=== PATIENT | female | born 1950 | race Caucasian/White ===

== ENCOUNTER → 2017-07-14 | Outpatient (CLI) | payer OTHER | END | disposition home or self-care (01) | LOC: RAD 15:26 | DX: M19.011 Primary osteoarthritis, right shoulder (principal); G89.29 Other chronic pain | CPT/HCPCS: 73030 ==

== ENCOUNTER → 2017-09-08 | Outpatient (CLI) | payer OTHER, MEDICARE | END | disposition home or self-care (01) | LOC: MRI 15:31 | DX: M25.711 Osteophyte, right shoulder (principal); M75.101 Unspecified rotator cuff tear or rupture of right shoulder, not specified as traumatic; G89.29 Other chronic pain; I10 Essential (primary) hypertension; E03.9 Hypothyroidism, unspecified | CPT/HCPCS: 73221 ==

== ENCOUNTER → 2018-04-27 | Outpatient (CLI) | payer OTHER ==
[2014-12-18 19:32] VITALS: BP 165/78
[~2018-04-27] MED LIST: REGADENOSON 0.4 MG/5 ML DISP.SYRIN. IV ONE
--- NOTE | 2018-04-27 12:01 | CARD ---
MR#: [id number] Date of Study: 04/27/2018 Ordering Physician: SYMONE DICKSON, Referring Physician: SYMONE DICKSON, Tech: Zuleyka Alfredo APPROVED REPORT EXAM: Two-dimensional and M-mode echocardiogram with Doppler and color Doppler. Other Information Quality : AverageHR: 62bpm INDICATION Dyspnea RISK FACTORS Hypertension 2D DIMENSIONS RVDd2.9 (2.9-3.5cm)Left Atrium(2D)3.4 (1.6-4.0cm) IVSd1.1 (0.7-1.1cm)Aortic Root(2D)2.7 (2.0-3.7cm) LVDd4.4 (3.9-5.9cm)LVOT Diameter2.1 (1.8-2.4cm) PWd0.8 (0.7-1.1cm)LVDs2.5 (2.5-4.0cm) FS (%) 43.1 %SV64.9 ml LVEF(%)74.5 (>50%) Aortic Valve AoV Peak Spenser.195.6cm/sAoV VTI47.5cm AO Peak GR.15.3mmHgLVOT Peak Spenser.125.5cm/s AO Mean GR.8mmHgAVA (VMAX)2.17cm2 Mitral Valve MV E Tefownvg54.0cm/sMV DECEL SLQE911sk MV A Jyqlsbpd370.6cm/sE/A Ratio0.8 Pulmonary Valve PV Peak Wbpxnlld367.9cm/s Tricuspid Valve TR P. Lnadqsug272jr/sRAP RBQAVATE7ifVq TR Peak Gr.68laGqKOBF68uhVs Pulmonary Vein S1 Kosjfyqp82.9cm/sD2 Xrvtxoug82.2cm/s PVa krjjaxbw88odcx LEFT VENTRICLE The left ventricle is normal size. There is borderline concentric left ventricular hypertrophy. The l eft ventricular systolic function is normal. The Ejection Fraction is 55-60%. There is normal LV segm ental wall motion. Transmitral Doppler flow pattern is Grade I-abnormal relaxation pattern. RIGHT VENTRICLE The right ventricle is normal size. There is normal right ventricular wall thickness. The right ventr icular systolic function is normal. ATRIA The left atrium size is normal. The right atrium size is normal. The interatrial septum is intact wit h no evidence for an atrial septal defect or patent foramen ovale as noted on 2-D or Doppler imaging. AORTIC VALVE The aortic valve is normal in structure and function. Doppler and Color Flow revealed no significant aortic regurgitation. There is no significant aortic valvular stenosis. MITRAL VALVE The mitral valve is thickened but opens well. There is no evidence of mitral valve prolapse. There is no mitral valve stenosis. Doppler and Color-flow revealed trace mitral regurgitation. TRICUSPID VALVE The tricuspid valve is not well visualized. Doppler and Color Flow revealed trace tricuspid regurgita tion. There is no tricuspid valve stenosis. PULMONIC VALVE The pulmonic valve is not well visualized. Doppler and Color Flow revealed trace pulmonic valvular re gurgitation. GREAT VESSELS The aortic root is normal in size. Normal pulmonary venous flow (Doppler). The IVC is normal in size and collapses >50% with inspiration. PERICARDIAL EFFUSION There is no evidence of significant pericardial effusion. Critical Notification Critical Value: No <Conclusion> The left ventricular systolic function is normal. The Ejection Fraction is 55-60%. There is normal LV segmental wall motion. Transmitral Doppler flow pattern is Grade I-abnormal relaxation pattern. Trace mitral regurgitation. Trace tricuspid regurgitation. There is no evidence of significant pericardial effusion. Signed by : Symone Dickson, Electronically Approved : 04/27/2018 12:00:23
--- NOTE | 2018-04-27 12:39 | RAD ---
MR#: [id number] Date of Study: 04/27/2018 Ordering Physician: SYMONE WILSON, Referring Physician: JADIEL MORFIN Tech: DUDLEY Pratt ARRT (R) (N) APPROVED REPORT Test Type: Pharmacological Stress Nurse/Tech: Tyson ORTEGA Test Indications: Swelling in ankles Cardiac History: HTN, See EMR Medications: See EMR See EMR Medical History: See EMR Resting ECG: SR Resting Heart Rate: 68 bpm Resting Blood Pressure: 149/78mmHg Pretest Chest Pain: No chest pain Nurse/Tech Notes Lungs CTA, Heart tones regular. Consent: The procedure was explained to the patient in lay terms. Informed consent was witnessed. Ryne eout was entered into [employer]. History and Stress Test performed by DUDLEY Pratt ARRT (R) (N) Pharm. Details Pharmacologic stress testing was performed using 0.4mg per 5ml of regadenoson given intravenously ove r 7-10 seconds. Stress Symptoms Pt explains having shoulder tightness at 2/10 in stage R 00:55. This was relieved by the end of R sta ge. POST EXERCISE Reason for Termination: Infusion complete Max HR: 124 bpm Max Blood Pressure: 169/80mmHg Chest Pain: No. See Stress Symptoms above. Arrhythmia: No. ST Change: No. INTERPRETATION Stress EKG Conclusion: Baseline EKG showed sinus rhythm. No ischemic changes at peak stress. No arr hythmias. Imaging Protocol IMAGE PROTOCOL: Rest Tc-99m/stress Tc-99m 1 day Rest: Stress: Viability: Radiopharm.Tc99m ZledjhzlaKj50a Sestamibi Dose12.1mCi 33mCi Img Date 04/27/2018 04/27/2018 Rest Admin Site:IV - Right HandAdministrator:HERMELINDO Pires Stress Admin Site: IV - Right HandAdministrator: DUDLEY Pratt ARRT (R)(N) STRESS DATA End Diast. Vol.69.0mlAv. Heart Rate68.0bpm End Syst. Vol.9.0mlCO Index BSA0.0L/min Myocardial Cahm621.0gEject. Buthlibb17.0% Stress Rates Pk. Fill Rate2.87EDV/secLVtime Pk. Fill 199.87msec Pk. Empty Rate5.05ESV/secLVtime Pk. Jcewo757.58msec / Pk. Fill1.30EDV/sec Stress Scores Regional WT0.00Summed WT0.00 Regional WM0.00Summed WM0.00 Study quality was . Left Ventricular size was Normal at Rest and Stress. Lung uptake was . Left Ventricular ejection fraction is 86%. The rest and stress images show normal perfusion, normal contraction and thickening. LV Perf. Quant 17 Seg. SSS0.00 17 Seg. SRS0.00 17 Seg. SDS0.00 Stress Defect Extent (% LAD)0.00Rest Defect Extent (% LAD)0.00Rev. Defect Extent (% LAD)0.00 Stress Defect Extent (% LCX) 2.50Rest Defect Extent (% LCX)0.00Rev. Defect Extent (% LCX)0.00 Stress Defect Extent (% RCA)0.00Rest Defect Extent (% RCA)0.00Rev. Defect Extent (% RCA)0.00 Stress Defect Extent (% MANJINDER)0.40Rest Defect Extent (% MANJINDER)0.00Rev. Defect Extent (% MANJINDER)0.00 Conclusion 1. Regadenoson cardioisotope stress test did not show any evidence of ischemia or infarct. 2. Normal left ventricular systolic function with ejection fraction calculated at 86%. 3. Low risk for cardiac events. Signed by : Symone Wilson, Electronically Approved : 04/27/2018 12:37:24
== END | disposition home or self-care (01) ==
LOC: NM 08:37
PROVIDERS: ATTEND Internal Medicine Cardiovascular Disease
DX: R06.09 Other forms of dyspnea (principal); I11.9 Hypertensive heart disease without heart failure; R22.41 Localized swelling, mass and lump, right lower limb; R22.42 Localized swelling, mass and lump, left lower limb
CPT/HCPCS: 78452; 93017; 93306; 96374; A9500; J2785

== ENCOUNTER → 2018-04-28 | Outpatient (CLI) | payer OTHER ==
[2014-12-18 19:32] VITALS: BP 165/78
--- NOTE | 2018-04-29 13:32 | RAD ---
MR#: [id number] Date of Study: 04/28/2018 Ordering Physician: SYMONE WILSON, Referring Physician: SYMONE WILSON, Tech: BALDEV Little, RDMS, RTR APPROVED REPORT Patient Location : OUT-PATIENT Indications Lower Extremity Edema : Bilateral HTN Risk Factors Obesity Findings The moody scale images of the bilateral SFJ do not reveal any obvious thrombus. The R/L GSV do not demonstrate reflux and measure approximately 7.2 mm and 8.6 mm, respectively. The R/L LSV do not demonstrate reflux. Critical Notification Critical Value: No <Conclusion> 1. Negative for reflux in the bilateral greater and lesser saphenous veins. Signed by : David Griggs, Electronically Approved : 04/29/2018 13:30:32
== END | disposition home or self-care (01) ==
LOC: US 08:56
PROVIDERS: ATTEND Internal Medicine Cardiovascular Disease
DX: R60.0 Localized edema (principal); I10 Essential (primary) hypertension; E66.9 Obesity, unspecified
CPT/HCPCS: 93970

== ENCOUNTER → 2020-06-08 | Outpatient (CLI) | payer OTHER ==
[2014-12-18 19:32] VITALS: BP 165/78
--- NOTE | 2020-06-08 10:57 | KCIC ---
Examination: MRI of the left knee without contrast HISTORY: History of left knee pain, recent injury COMPARISON: None available TECHNIQUE: Multiplanar, multisequence MR imaging of the left knee was performed without contrast. FINDINGS: Anterior cruciate ligament, posterior cruciate ligament appears intact. There is blunting of the unde rsurface of the body of the medial meniscus at its junction with the posterior horn with minimal extr usion of the medial meniscus medially likely tear. The lateral meniscus appears intact. The medial co llateral ligament is intact. Lateral collateral ligamentous complex including the fibular collateral ligament, biceps femoris and popliteus tendon appears intact. The extensor mechanism is intact. Mild degenerative disease identified in the proximal portion of the infrapatellar tendon likely mild tendinosis. Small knee joint effusion. The medial, lateral retinaculum appears intact. Deep fissuring of cartilag e identified in the medial, lateral, patellofemoral compartments. Moderate joint space loss identifie d in the lateral, patellofemoral compartments. IMPRESSION: 1. Blunting of the undersurface of the body of the medial meniscus at its junction with the posterio r horn with minimal extrusion of the medial meniscus medially likely tear. 2. Grade II chondromalacia medial, lateral, patellofemoral compartments. 3. Small knee joint effusion. Electronically signed by: Devante Zarate MD (06/08/2020 10:54 AM) [id number]
--- NOTE | 2020-06-08 15:22 | KCIC ---
EXAM: Right knee, 4 views HISTORY: Right knee pain. COMPARISON: None. FINDINGS: No fractures are identified. Joint spaces are maintained. There are small osteophytes along the media l compartment. Alignment is normal. There is a small joint effusion. IMPRESSION: 1. Early medial compartmental osteoarthritis. Small joint effusion. Electronically signed by: Nina Siegel MD (06/08/2020 3:20 PM) [id number]
--- NOTE | 2020-06-13 14:08 | KCIC ---
Bilateral digital screening mammograms: Reason for examination: Routine screening. No previous examinations available for comparison. Interpretation was made with the benefit of CAD. The skin and nipples show no abnormalities. No abnormal axillary lymph nodes are seen. The breast par enchyma shows scattered fibroglandular density. (Breast density: Category B.) There appears to be a s mall focus of nodularity with calcifications at the 3:30 B position of the left breast. There are als o small nodular parenchymal densities in the 2:30 B position of the left breast and at the 10:00 B po sition of the left breast. Recommend further evaluation with coned magnification views and ultrasound of the left breast. There also appear to be small nodular parenchymal densities in the right breast which are probably at the 1:00 B and 6:00 B positions. Further evaluation with right breast ultrasoun d is recommended. Impression: Small parenchymal density which appears to contain some calcifications located at the 3:30 B position of the left breast. Additional small nodular densities at the 2:30 B and 10:00 B positions of the le ft breast Recommend cone compression magnification views and ultrasound. Small nodular parenchymal densities in the right breast which are probably at the 1:00 B and 6:00 B p ositions. Recommend further evaluation with ultrasound. BI-RADS Category 0: Incomplete. Needs additional imaging evaluation. "Our facility is accredited by the [employer] Mammography Program." This patient's information has been entered into a reminder system for the patient to be notified wit h the results of her examination and a target date for the next mammogram. Electronically signed by: Annette Zheng MD (06/13/2020 2:05 PM) [email or web address]
== END ==
LOC: KCIC MAMMO 08:53
PROVIDERS: ATTEND Nurse Practitioner Family
DX: Z12.31 Encounter for screening mammogram for malignant neoplasm of breast (principal); M17.11 Unilateral primary osteoarthritis, right knee; M22.42 Chondromalacia patellae, left knee; M25.462 Effusion, left knee; M25.461 Effusion, right knee; M25.761 Osteophyte, right knee; N64.89 Other specified disorders of breast
CPT/HCPCS: 73564; 73721; 77067

== ENCOUNTER → 2020-07-05 | Outpatient (CLI) | payer OTHER ==
[2014-12-18 19:32] VITALS: BP 165/78
--- NOTE | 2020-07-05 14:50 | KCIC ---
LEFT DIAGNOSTIC MAMMOGRAPHY AND BILATERAL BREAST ULTRASOUND History: Abnormal screening mammogram. Comparison: Bilateral screening mammogram, new baseline, 06/08/2020. Technique: Left spot magnification CC and ML digital mammogram views were obtained. Findings: Breast Tissue Density B : There are scattered areas of fibroglandular density. With spot magnification views there are scattered punctate microcalcifications. Grouped, linear, or b ranching configuration of microcalcifications are not identified. Real-time ultrasound imaging of the bilateral breasts is performed. In the right breast, at the 1:00 position 4 cm from the nipple there is a 4 mm probable complicated c yst. At the 6:00 position 5 cm from the nipple there is a probable complicated cyst measuring 5 mm. T hese likely correlate with the mammogram. There are no abnormal axillary lymph nodes. In the left breast at the 2:30 position 5 cm from the nipple there is a 3 mm hypoechoic nodule. At th e 3:30 position 7 cm from the nipple there is a 2 mm hypoechogenicity along a ligament. There is a ne arby microcalcification. At the 10:00 position 4 cm from the nipple there is a 3 mm hypoechogenicity that may be fibrocystic change. There are no abnormal axillary lymph nodes. IMPRESSION: 1. There are no suspicious microcalcifications of the left breast. 2. There are small probable complicated cysts of the right breast at the 1:00 and 6:00 positions. 3. There are tiny hypoechoic nodules in the left breast at the 2:30, 3:30, and 10:00 positions. 4. Recommend bilateral ultrasound follow-up in 6 months. BI-RADS category 3: Probably benign. The images were reviewed with computer-aided detection. Patient information is entered into the reminder system with a target due date for the next screening mammogram. Mammography is the most sensitive method for finding small breast cancers, but it does not detect the m all and is not a substitute for careful clinical examination. A negative mammogram does not negate a clinically suspicious finding and should not result in delay in biopsying a clinically suspicious a bnormality. "Our facility is accredited by the [employer] Mammography [employer]." Electronically signed by: Rick Vance MD (07/05/2020 2:48 PM) [email or web address]
== END ==
LOC: KCIC MAMMO 13:02
PROVIDERS: ATTEND Nurse Practitioner Family
DX: N64.4 Mastodynia (principal); N60.01 Solitary cyst of right breast
CPT/HCPCS: 76641; 77065